=== PATIENT | female | born 1975 | race Caucasian/White ===

== ENCOUNTER 2017-07-02 10:03 | Emergency (ER) | payer MEDICARE, MEDICAID ==
[~2017-07-02] VITALS: Ht 154.9 cm; Wt 81.7 kg
[~2017-07-02 10:03] MED LIST: AMBIEN5 MG PO; ATIVAN1 MG PO; CLONAZEPAM 0.50.5 M1 PO; MAGOX 400400 MG PO; VITAMIN B-1100 M1 PO
[2017-07-02] MEDS ORDERED: ZOLOFT25 MG PO (10:19)
[2017-07-02 10:38] LABS: ABSOLUTE BASOPHILS 0.1 thou/uL (0.0-0.2); ABSOLUTE EOSINOPHILS 0.2 thou/uL (0.0-0.7); ABSOLUTE LYMPHOCYTES 1.6 thou/uL (0.8-5.3); ABSOLUTE MONOCYTES 0.3 thou/uL (0.0-1.2); ABSOLUTE NEUTROPHILS 3.7 thou/uL (1.6-8.1); HEMOGLOBIN 7.5 gm/dL (12.0-15.0); LYMPHOCYTES 26.9 %; MCH 21.4 pg (26.0-34.0); MCHC 31.3 g/dL (28.0-37.0); MCV 68.3 fL (80.0-100.0); MONOCYTES 5.2 %; NUCLEATED RBCS 0 /100WBC; PLATELET COUNT* 214 thou/uL (150-400); POLYS 63.9 %; RBC 3.51 mil/uL (4.20-5.00); RDW-CV 17.3 % (10.5-14.5); WBC 5.8 thou/uL (4.0-11.0)
[2017-07-02 10:44] LABS: CALCIUM 8.7 mg/dL (8.5-10.1); CREATININE 0.6 mg/dL (0.6-1.3); POTASSIUM 3.6 mmol/L (3.5-5.1)
[2017-07-02 10:48] LABS: TOTAL BILIRUBIN 0.2 mg/dL (<0.1-1.0); TOTAL PROTEIN 6.7 g/dL (6.4-8.2)
[2017-07-02 10:56] LABS: ANISOCYTOSIS 2+; HYPOCHROMASIA 3+; MICROCYTES 2+; OVALOCYTES 1+; PLATELET ESTIMATE ADEQUATE; POLYCHROMASIA 1+
[2017-07-02 11:23] LABS: URINE BILIRUBIN NEGATIVE (Negative); URINE BLOOD 3+ (Negative); URINE CLARITY CLEAR; URINE COLOR YELLOW; URINE GLUCOSE-RANDOM NEGATIVE (Negative); URINE KETONES NEGATIVE (Negative); URINE LEUKOCYTES-REFLEX NEGATIVE (Negative); URINE NITRITE-REFLEX NEGATIVE (Negative); URINE PROTEIN NEGATIVE (Negative); URINE SPECIFIC GRAVITY <= 1.005 (1.005-1.030); URINE UROBILINOGEN 0.2 E.U./dl (0.2-1.0)
[2017-07-02 11:34] LABS: BACTERIA-REFLEX 1-9 Few /HPF (None Seen); CASTS None Seen /LPF (None Seen); CRYSTALS None Seen /LPF (None Seen); MUCUS None Seen strn/LPF (None Seen); SQUAMOUS 0-3 Few /LPF (0-3); URINE WBC-REFLEX 0-5 Rare /HPF (0-5)
[2017-07-02 12:34] LABS: HEMATOCRIT 24.1 % (37.0-47.0); HEMOGLOBIN 7.6 gm/dL (12.0-15.0)
[2017-07-02 14:03] VITALS: BP 130/83
== END 2017-07-02 14:04 | disposition home or self-care (01) ==
LOC: M.ERS 10:03
PROVIDERS: Nurse Practitioner Family
DX: N93.9 Abnormal uterine and vaginal bleeding, unspecified (principal)

== ENCOUNTER 2017-10-21 18:16 | Emergency (ER) | payer MEDICARE, MEDICAID ==
[~2017-10-21] VITALS: Ht 154.9 cm; Wt 81.7 kg
[~2017-10-21 18:16] MED LIST changes: +ZOLOFT25 MG PO
[2017-10-21 19:14] LABS: ABSOLUTE BASOPHILS 0.1 thou/uL (0.0-0.2); ABSOLUTE EOSINOPHILS 0.2 thou/uL (0.0-0.7); ABSOLUTE LYMPHOCYTES 3.1 thou/uL (0.8-5.3); ABSOLUTE MONOCYTES 0.4 thou/uL (0.0-1.2); ABSOLUTE NEUTROPHILS 3.4 thou/uL (1.6-8.1); BASOPHILS 1.1 %; EOSINOPHILS 2.4 %; HEMATOCRIT 43.4 % (37.0-47.0); HEMOGLOBIN 14.2 gm/dL (12.0-15.0); LYMPHOCYTES 43.6 %; MCH 26.9 pg (26.0-34.0); MCHC 32.8 g/dL (28.0-37.0); MCV 82.2 fL (80.0-100.0); MONOCYTES 5.7 %; MPV 6.8 fl. (7.2-11.1); NUCLEATED RBCS 0 /100WBC; PLATELET COUNT* 270 thou/uL (150-400); POLYS 47.2 %; RBC 5.28 mil/uL (4.20-5.00); RDW-CV 16.2 % (10.5-14.5); WBC 7.1 thou/uL (4.0-11.0)
[2017-10-21 19:17] LABS: CALCIUM 8.9 mg/dL (8.5-10.1); CREATININE 0.7 mg/dL (0.6-1.3); POTASSIUM 3.4 mmol/L (3.5-5.1)
[2017-10-22 00:15] VITALS: BP 110/69
== END 2017-10-22 00:17 | disposition home or self-care (01) ==
LOC: M.ERS 18:16
PROVIDERS: Nurse Practitioner
DX: F32.9 Major depressive disorder, single episode, unspecified (principal); Z88.8 Allergy status to other drugs, medicaments and biological substances

== ENCOUNTER 2018-02-20 11:06 | Inpatient (IN) | payer MEDICARE, MEDICAID ==
[~2018-02-20] VITALS: Ht 154.9 cm; Wt 87.3 kg
[2018-02-20 11:21] VITALS: BP 148/93
[2018-02-20 11:21] LABS: URINE BILIRUBIN NEGATIVE (Negative); URINE BLOOD TRACE (Negative); URINE CLARITY CLEAR; URINE COLOR YELLOW; URINE GLUCOSE-RANDOM NEGATIVE (Negative); URINE KETONES NEGATIVE (Negative); URINE LEUKOCYTES-REFLEX NEGATIVE (Negative); URINE NITRITE-REFLEX NEGATIVE (Negative); URINE PROTEIN NEGATIVE (Negative); URINE SPECIFIC GRAVITY 1.015 (1.005-1.030); URINE UROBILINOGEN 0.2 E.U./dl (0.2-1.0)
[2018-02-20 11:30] LABS: HEMATOCRIT 37.4 % (37.0-47.0); HEMOGLOBIN 12.3 gm/dL (12.0-15.0); MCH 25.7 pg (26.0-34.0); MCHC 32.8 g/dL (28.0-37.0); MCV 78.5 fL (80.0-100.0); MPV 7.4 fl. (7.2-11.1); NUCLEATED RBCS 0 /100WBC; PLATELET COUNT* 167 thou/uL (150-400); RBC 4.77 mil/uL (4.20-5.00); RDW-CV 17.1 % (10.5-14.5); WBC 13.5 thou/uL (4.0-11.0)
[2018-02-20 11:42] LABS: CALCIUM 8.7 mg/dL (8.5-10.1); CREATININE 0.8 mg/dL (0.6-1.3); POTASSIUM 3.1 mmol/L (3.5-5.1)
[2018-02-20 11:51] LABS: ALBUMIN 3.1 g/dL (3.4-5.0); TOTAL BILIRUBIN 0.3 mg/dL (<0.1-1.0); TOTAL PROTEIN 7.6 g/dL (6.4-8.2)
[2018-02-20 11:52] LABS: ABSOLUTE LYMPHOCYTES 0.9 thou/uL (0.8-5.3); ABSOLUTE MONOCYTES 0.4 thou/uL (0.0-1.2); ABSOLUTE NEUTROPHILS 12.2 thou/uL (1.6-8.1); PLATELET ESTIMATE ADEQUATE
[2018-02-20 13:50] VITALS: BP 142/85
[2018-02-20 14:15] VITALS: BP 129/80
--- NOTE | 2018-02-20 17:40 | NUR ---
Assumed care of pt at 1405, pt A&OX4 is able to make needs known. VS on transfer to unit, Temp 99.4, Pulse 117, rhythmn is regular, c/o headache, pt is up ad nickolas with stand by assist d/t weakness. Fluids and ABT ordered are infusing, no s/s of adverse reactions noted. Pt in bed resting, call light in reach, hourly rounding maintained, will cont to monitor.
[2018-02-20 19:55] VITALS: BP 136/76
[2018-02-20 21:38] LABS: INFLUENZA A ANTIGEN None Detected (None Detect); INFLUENZA B ANTIGEN None Detected (None Detect)
[2018-02-20] MEDS ORDERED: ATIVAN1 MG PO (21:42)
[2018-02-21] VITALS: BP 117/72
[2018-02-21 04:00] VITALS: BP 118/84
--- NOTE | 2018-02-21 04:49 | NUR ---
Pt reports generalized aching, but particularly in back and head, rating 8/10. T-max for this shift: 103.1 F. Given acetaminophen, fentanyl, and ketorolac for pain and/or fever. T eventually down to 98.6, then up slightly to 99. Reports partial relief of pain, /10. Pt slept during later part of shift. Pt's sister stayed overnight in pt's room. Pt voiding without difficulty, up ad nickolas to BR. VSS. Rapid influenza A/B screens negative. Will continue to monitor.
[2018-02-21 08:00] VITALS: BP 123/78
[2018-02-21 08:38] LABS: ABSOLUTE LYMPHOCYTES 1.8 thou/uL (0.8-5.3); ABSOLUTE MONOCYTES 1.3 thou/uL (0.0-1.2); ABSOLUTE NEUTROPHILS 11.1 thou/uL (1.6-8.1); BASOPHILS 0.3 %; EOSINOPHILS 0.3 %; HEMATOCRIT 35.1 % (37.0-47.0); HEMOGLOBIN 11.2 gm/dL (12.0-15.0); LYMPHOCYTES 12.5 %; MCH 25.6 pg (26.0-34.0); MCV 79.8 fL (80.0-100.0); MONOCYTES 8.8 %; MPV 7.6 fl. (7.2-11.1); NUCLEATED RBCS 0 /100WBC; PLATELET COUNT* 153 thou/uL (150-400); POLYS 78.1 %; RDW-CV 17.5 % (10.5-14.5); WBC 14.2 thou/uL (4.0-11.0)
[2018-02-21 08:52] LABS: ALBUMIN 2.5 g/dL (3.4-5.0); CALCIUM 8.2 mg/dL (8.5-10.1); CREATININE 0.6 mg/dL (0.6-1.3); POTASSIUM 3.4 mmol/L (3.5-5.1); TOTAL BILIRUBIN 0.3 mg/dL (<0.1-1.0); TOTAL PROTEIN 6.6 g/dL (6.4-8.2)
--- NOTE | 2018-02-21 09:16 | NUR ---
Pt is A&O. Resides at home with her dtr. Independent with ADLs, continues to cook, clean and drive. No DME. No hx of HH or SNF. Pt receives disability. Goal [place]. No needs anticipated.
--- NOTE | 2018-02-21 10:41 | NUR ---
RECEIVED REPORT FROM LORENE AND ASSUMED CARE OF PT @ 5706.PT IS A/O,VSS,TRACING SR-ST ON THE MONITOR.LUNG SOUNDS ARE CLEAR.IV PATENT WITH FLUIDS RUNNING @ 100ML/HR.PT IS CALM AND COOPERATIVE WITH C/O PAIN IN BACK-RELIEF WITH MEDICATIONS.PT IS UP AD MENG IN ROOM.CALL LIGHT WITHIN REACH.WILL CONTINUE TO MONITOR.
--- NOTE | 2018-02-21 11:29 | CON ---
[address] [address] CONSULTATION Name: CJ Room: [address] IN M.R.#: [id number] Admission: 02/20/18 Attend Phys: Theresa Chew Discharge: Date of : 79 Report #: [id number] THIS REPORT FOR: //name// CC: [facility] physician/PCP Shiva Etienne DATE OF SERVICE: 02/21/2018 INFECTIOUS DISEASE CONSULTATION ATTENDING PHYSICIAN: Dr. Etienne. REASON FOR EVALUATION: Febrile illness. HISTORY OF PRESENT ILLNESS: Chart reviewed, the patient examined. This is a 42-year-old, long-term medical history, although had, over the course of the last few months, issues with complication subsequent to a hysterectomy and some arterial bleeding it sounds, like emergent procedure and second as well, with extended recovery time that she was finally cleared over the course of the last 10 days. She developed fevers over the course of a short period of time at 104 degrees Fahrenheit and did have associated headache and some lower back pain. Denied significant abdominal-related complaints or pulmonary complaints. She is not aware of any particular exposure history. She has generally been not as active. No recent travel. No dietary indiscretion. There are a couple of dogs in the house, although not felt to have any issues with them either. Evaluation including CT of the abdomen and pelvis, which showed fluid collections; it is difficult to ascertain whether these are just postoperative seromatous changes. Lactic acid was elevated at 2.8. White count was elevated at 13.5. Urinalysis unremarkable. Chest x-ray, changes. Influenza antigen was negative as well. Blood cultures were sterile thus far. She was started on empiric therapy with ceftriaxone diazepam, tramadol, venlafaxine and quetiapine. MEDICATIONS: Include p.r.n. analgesics, antiemetics and ceftriaxone. PAST MEDICAL HISTORY: As described above. Previous appendectomy as well. SOCIAL HISTORY: She is . Former smoker. No ethanol. No illicit drug use. FAMILY HISTORY: Noncontributory. REVIEW OF SYSTEMS: As above. PHYSICAL EXAMINATION: GENERAL: She is pleasant, alert and cooperative. She is not encephalopathic. [place] [address] CONSULTATION Name: Room: [address]#: [id number] Admission: 02/20/18 Attend Phys: Theresa Chew Discharge: Date of : 79 Report #: [id number] VITAL SIGNS: T-max recorded last evening 103.1, more recently 99; pulse 105; respirations 16 and blood pressure 118/84. SKIN: Warm, dry. No rashes. HEENT: Otherwise, unremarkable. NECK: Supple. LUNGS: Generally clear to auscultation. HEART: Regular. ABDOMEN: Soft, nontender. There are no peritoneal signs. GENITOURINARY: Deferred. RECTAL: Deferred. LABORATORY DATA: Urinalysis unremarkable. CBC: White count of 13.5, H and H 12.3 and 37.4 and platelets of 167,000. Electrolytes: Sodium 133, potassium 3.1, chloride 100, bicarbonate is 23, anion gap of 10 and BUN and creatinine 7 and 0.8. LFTs are unremarkable. Albumin of 3.1. Total protein of 7.6. Estimated GFR of 79. Chest x-ray, no acute process. Lactic acid 2.6. CT of the abdomen and pelvis, diffuse thickening involving the upper vaginal vault, fluid collection above, which may reflect right ovary enlargement, contains large central fluid collection, possibly corpus luteum cyst; left-sided fluid collection with questionable was seroma and unremarkable colon. Repeat lactic acid was 0.7. Influenza antigen was negative. Blood cultures were sterile thus far. White count was still 14.2. ASSESSMENT AND PLAN: Febrile illness, uncertain etiology. Certainly, the chronology suggests infectious etiology. We will continue empiric therapy. Ceftriaxone is a reasonable coverage. At this point, there is no clinical evidence of a localized pyogenic infection. Certainly, the fluid collections may or may not be a source of fevers including infection. We will see how she does clinically. We would not actually feel urgency to place a percutaneous aspiration via multiple collections. Discussed in detail with the patient. <ELECTRONICALLY SIGNED> By: Ayaan Banks MD 02/21/18 1129 [id number] 1100Jojohn Banks MD /nt
--- NOTE | 2018-02-21 12:56 | EKG ---
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1975 Requested By: Olena Card Order Number: [id number] MD: Jose David Bauer Measurements Intervals [place] Rate: 137 P: 42 MO: 131 QRS: -56 QRSD: 92 T: 75 QT: 292 QTc: 441 Interpretive Statements Sinus tachycardia Left anterior fascicular block Probable anteroseptal infarct, old Compared to ECG 04/03/2017 16:08:55 rate increased Electronically Signed On 02-21-2018 12:56:35 CDT by Jose David Bauer [email or web address] <ELECTRONICALLY SIGNED> By: Jose David Bauer MD, [facility] 02/21/18 1256 1140 1140 Jose David Bauer MD, [facility] /EPI
[2018-02-21 14:14] VITALS: BP 126/83
[2018-02-21 17:32] VITALS: BP 148/103
--- NOTE | 2018-02-21 18:38 | NUR ---
BP SLIGHTLY ELEVATED.IV FLUIDS PUT ON HOLD.CARDIAC MONITORING IN PLACE WITH NO CHANGES.PT REMAINS ON ROOM AIR.IV ANTIBIOTICS COMPLETED.PAIN MANAGED WELL WITH MEDICATIONS.AFEBRILE.PT INFORMED OF PLAN OF CARE AND COMMUNICATES UNDERSTANDING.HOURLY ROUNDING COMPLETED FOR PT SAFETY.CALL LIGHT WITHIN REACH.WILL CONTINUE TO MONITOR FOR DURATION OF SHIFT.
[2018-02-21 20:00] VITALS: BP 154/103
[2018-02-22] VITALS: BP 144/88
--- NOTE | 2018-02-22 02:59 | NUR ---
ASSUMED CARE OF PATIENT AT 1900. FEBRILE. GIVEN TYLENOL. NO RELIEF UPON RECHECKING. TORADOL GIVEN, TEMP WITHIN NORMAL LIMITS. STATES SHE HAS LOWER BACK PAIN NEAR HER KIDNEYS. WILL PASS ON TO DAY SHIFT, THIS HAS NOT BEEN ASSESSED DIAGNOSTICALLY. SISTER AT BEDSIDE. POC DISCUSSED, ALL QUESTIONS ANSWERED. WILL CONTINUE TO MONITOR.
[2018-02-22 04:00] VITALS: BP 127/94
[2018-02-22 08:09] VITALS: BP 146/95
[2018-02-22 08:27] LABS: ABSOLUTE BASOPHILS 0.1 thou/uL (0.0-0.2); ABSOLUTE EOSINOPHILS 0.2 thou/uL (0.0-0.7); ABSOLUTE LYMPHOCYTES 2.2 thou/uL (0.8-5.3); BASOPHILS 0.6 %; EOSINOPHILS 1.7 %; HEMATOCRIT 33.6 % (37.0-47.0); HEMOGLOBIN 10.8 gm/dL (12.0-15.0); MCH 25.8 pg (26.0-34.0); MCHC 32.2 g/dL (28.0-37.0); MCV 80.2 fL (80.0-100.0); MONOCYTES 8.9 %; MPV 8.2 fl. (7.2-11.1); NUCLEATED RBCS 0 /100WBC; PLATELET COUNT* 165 thou/uL (150-400); POLYS 69.8 %; RDW-CV 17.4 % (10.5-14.5); WBC 11.5 thou/uL (4.0-11.0)
[2018-02-22 08:37] LABS: ALBUMIN 2.5 g/dL (3.4-5.0); CALCIUM 7.9 mg/dL (8.5-10.1); CREATININE 0.6 mg/dL (0.6-1.3); POTASSIUM 3.8 mmol/L (3.5-5.1); TOTAL BILIRUBIN 0.1 mg/dL (<0.1-1.0); TOTAL PROTEIN 5.9 g/dL (6.4-8.2)
--- NOTE | 2018-02-22 11:15 | NUR ---
ASSUMED CARE OF PATIENT AFTER RECEIVING REPORT FROM NOC RN. PT IS O X4, AWAKE, RESTING IN BED. FAMILY IN ROOM ASLEEP. 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 O2 SATS 98% RA. PT IS AFEBRILE. IV SL. ASSESSMENT COMPLETE, DOCUMENTED. MEDS PER AUG. PRN PAIN MED FENTANYL GIVEN ORDERED. CALL LIGHT IN REACH. PT ABLE TO COMMUNICATE NEEDS TO STAFF.
[2018-02-22 12:08] VITALS: BP 158/103
[2018-02-22 15:50] VITALS: BP 158/102
--- NOTE | 2018-02-22 18:00 | NUR ---
PT CALLS OUT FOR PAIN MED EVERY THREE HOURS. STATES SHE DOES NOT TOLERATE ORAL PAIN MEDS LIKE TRAMADOL. ENCOURAGED AMBULATION IN ROOM WELL EATING HEALTHY DIET, NEEDS REINFORCEMENT. PT REMAINS AFEBRILE.
[2018-02-22 21:07] VITALS: BP 161/101
[2018-02-23] VITALS: BP 142/91
[2018-02-23 04:00] VITALS: BP 125/95
[2018-02-23 07:25] VITALS: BP 132/83
--- NOTE | 2018-02-23 07:57 | NUR ---
PT IS ABLE TO COMMUNNICATE HER NEEDS TO STAFF EFFECTIVELY. CURRENT PAIN MEDICATION REGIMEN HAS BEEN ADEQAUTE FOR CONTROLLING HER PAIN UP TO THIS TIME. PT HAD A LOW GRADE FEVER AT BEGINNING OF SHIFT; TYLENOL GIVEN; ORAL TEMP WNL FOR DURATION OF VITALS CHECKS UP TO 0700 TODAY. POSSIBLE DISCHGARGE IN A DAY OR TWO.
[2018-02-23 08:15] LABS: ABSOLUTE BASOPHILS 0.1 thou/uL (0.0-0.2); ABSOLUTE EOSINOPHILS 0.2 thou/uL (0.0-0.7); ABSOLUTE MONOCYTES 0.7 thou/uL (0.0-1.2); ABSOLUTE NEUTROPHILS 6.1 thou/uL (1.6-8.1); BASOPHILS 0.6 %; EOSINOPHILS 2.3 %; HEMATOCRIT 35.1 % (37.0-47.0); HEMOGLOBIN 11.3 gm/dL (12.0-15.0); LYMPHOCYTES 22.4 %; MCH 25.7 pg (26.0-34.0); MCHC 32.3 g/dL (28.0-37.0); MCV 79.6 fL (80.0-100.0); MONOCYTES 7.6 %; MPV 8.2 fl. (7.2-11.1); NUCLEATED RBCS 0 /100WBC; PLATELET COUNT* 192 thou/uL (150-400); POLYS 67.1 %; RBC 4.41 mil/uL (4.20-5.00); RDW-CV 17.1 % (10.5-14.5); WBC 9.1 thou/uL (4.0-11.0)
--- NOTE | 2018-02-23 10:30 | NUR ---
ASSUMED CARE OF PATIENT AFTER RECEIVING REPORT FROM NOC RN. PT A & O X4. 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 O2 SATS: 96% RA. IV SL. ASSESSMENT COMPLETE, DOCUMENTED. MEDS PER AUG. PRN PAIN MED GIVEN ORDERED. LESIONS TO L SIDE LIP REPORTED TO DR. ALMANZA.
[2018-02-23 12:00] VITALS: BP 149/93
[2018-02-23] MEDS ORDERED: NORCO 5-325 TA1 EACH PO (14:45)
[2018-02-23] MEDS ORDERED: KEFLEX500 M1 PO (14:46)
[2018-02-23 14:48] VITALS: BP 149/93
--- NOTE | 2018-02-23 15:04 | NUR ---
WAS ASKED TO PROVIDE PT WITH LIST OF DRS IN AREA IN ORDER TO FIND NEW PCP. LIST OF [facility]FF[facility] DRS GIVEN TO PT
[2018-02-23 15:08] VITALS: BP 143/88
== END 2018-02-23 16:30 | disposition home or self-care (01) | DRG 872 ==
LOC: M.ERS 11:06 → M.2W 12:57 → M.TBA-ER 12:57 → M.2W 14:00
PROVIDERS: Nurse Practitioner Family; ADMIT Internal Medicine
DX: A41.9 Sepsis, unspecified organism (principal); A04.9 Bacterial intestinal infection, unspecified; E44.0 Moderate protein-calorie malnutrition; F41.9 Anxiety disorder, unspecified; M54.9 Dorsalgia, unspecified; Z90.49 Acquired absence of other specified parts of digestive tract; Z87.891 Personal history of nicotine dependence; Z90.710 Acquired absence of both cervix and uterus; Z79.899 Other long term (current) drug therapy; Z88.5 Allergy status to narcotic agent; Z88.8 Allergy status to other drugs, medicaments and biological substances

== ENCOUNTER 2018-07-07 17:19 | Emergency (ER) | payer MEDICARE, MEDICAID ==
[~2018-07-07] VITALS: Ht 165.1 cm; Wt 77.1 kg
[~2018-07-07 17:19] MED LIST changes: +KEFLEX500 M1 PO; +NORCO 5-325 TA1 EACH PO
[2018-07-07] MEDS ORDERED: HYDROCHLOROTH12.5 M1 PO (17:32)
[2018-07-07] MEDS ORDERED: ROBAXIN500 MG PO (17:53)
[2018-07-07] MEDS ORDERED: MEDROLDOSEPACK PO (17:53)
[2018-07-07] MEDS ORDERED: IBU600 MG PO (17:53)
[2018-07-07 18:00] VITALS: BP 135/87
== END 2018-07-07 18:00 | disposition home or self-care (01) ==
LOC: M.ERS 17:19
DX: S16.1XXA Strain of muscle, fascia and tendon at neck level, initial encounter (principal); M54.12 Radiculopathy, cervical region; F41.9 Anxiety disorder, unspecified; Z88.6 Allergy status to analgesic agent; Z88.4 Allergy status to anesthetic agent; Z88.8 Allergy status to other drugs, medicaments and biological substances; W00.0XXA Fall on same level due to ice and snow, initial encounter; Y92.89 Other specified places as the place of occurrence of the external cause; Y93.89 Activity, other specified; Y99.8 Other external cause status

== ENCOUNTER 2018-11-26 14:39 | Emergency (ER) | payer MEDICARE, MEDICAID ==
[~2018-11-26] VITALS: Ht 154.9 cm; Wt 74.8 kg
[~2018-11-26 14:39] MED LIST changes: +HYDROCHLOROTH12.5 M1 PO; +IBU600 MG PO; +MEDROLDOSEPACK PO; +NAPROSYN500 MG PO; +ROBAXIN500 MG PO; +ZANAFLEX4 MG PO
[2018-11-26] MEDS ORDERED: HYDROCHLOROTH12.5 M1 PO (14:57)
[2018-11-26 15:12] LABS: URINE BILIRUBIN NEGATIVE (Negative); URINE BLOOD NEGATIVE (Negative); URINE CLARITY CLEAR; URINE COLOR STRAW; URINE GLUCOSE-RANDOM NEGATIVE (Negative); URINE KETONES NEGATIVE (Negative); URINE LEUKOCYTES-REFLEX NEGATIVE (Negative); URINE NITRITE-REFLEX NEGATIVE (Negative); URINE PROTEIN NEGATIVE (Negative); URINE SPECIFIC GRAVITY <= 1.005 (1.005-1.030); URINE UROBILINOGEN 0.2 E.U./dl (0.2-1.0)
[2018-11-26 15:25] VITALS: BP 118/73
== END 2018-11-26 15:25 | disposition home or self-care (01) ==
LOC: M.ERS 14:39
PROVIDERS: Nurse Practitioner Family
DX: R30.0 Dysuria (principal); F41.9 Anxiety disorder, unspecified; Z90.710 Acquired absence of both cervix and uterus; Z90.49 Acquired absence of other specified parts of digestive tract; Z88.6 Allergy status to analgesic agent; Z88.8 Allergy status to other drugs, medicaments and biological substances